=== PATIENT | female | born 1965 | race Caucasian/White ===

== ENCOUNTER 2020-05-01 09:48 | Emergency (ER) | payer OTHER ==
[2020-05-01] MEDS ORDERED: HYDROmorphone 1 MG/ML Syringe IM ONE (10:46)
--- NOTE | 2020-05-01 10:57 | EDM.PDOC ---
ED HPI GENERAL MEDICAL PROBLEM - General Chief Complaint: Genitourinary Problem Stated Complaint: kidney stone? Time Seen by Provider: 05/01/20 10:20 Source of Information: Reports: Patient History Limitations: Reports: No Limitations - History of Present Illness INITIAL COMMENTS - FREE TEXT/NARRATIVE: 54-year-old female with a history of kidney stones, presents with right flank pain for the past week, intermittent but worse over the past 24 to 48 hours. No dysuria or fever. She was evaluated at the clinic, had significant right flank pain but no CVA percussion tenderness or fever and vitals were stable but when they tried to order a CT scan to assess for renal stones they were told by radiology that they could not "fit a scan in". She was sent to the emergency room for the CT scan. Onset: Gradual Duration: Day(s): (Symptoms for 7 days, worse the last 24 to 48 hours) Right Lower Flank Pain Score (Numeric/FACES): 9 - Related Data Allergies Allergy/AdvReac Type Severity Reaction Status Date / Time codeine Allergy Vomiting Verified 05/01/20 10:06 Home Meds: Home Meds NK [No Known Home Meds] 05/01/20 [History] Past Medical History Genitourinary History: Reports: Renal Calculus - Past Surgical History HEENT Surgical History: Reports: Tonsillectomy Female Surgical History: Reports: Kidney stone extraction, Ureteral Stent Musculoskeletal Surgical History: Reports: Other (See Below) Other Musculoskeletal Surgeries/Procedures:: bunion removed with pin placed. Social & Family History - Tobacco Use Tobacco Use Status *Q: Heavy Tobacco User Years of Tobacco use: 37 Packs/Tins Daily: 1 - Caffeine Use Caffeine Use: Reports: Soda - Recreational Drug Use Recreational Drug Use: No ED ROS GENERAL - Review of Systems Review Of Systems: See Below Constitutional: Reports: Malaise. Denies: Fever, Chills HEENT: Reports: No Symptoms Respiratory: Denies: Shortness of Breath Cardiovascular: Denies: Chest Pain GI/Abdominal: Reports: Nausea. Denies: Abdominal Pain, Vomiting : Reports: Flank Pain (Right side), Urgency Musculoskeletal: Reports: Back Pain Skin: Reports: No Symptoms Neurological: Reports: No Symptoms Psychiatric: Reports: No Symptoms ED EXAM, GENERAL - Physical Exam Exam: See Below Exam Limited By: No Limitations General Appearance: Alert, Anxious, Mild Distress (Fairly uncomfortable) Head: Atraumatic Respiratory/Chest: No Respiratory Distress, Lungs Clear Cardiovascular: Regular Rate, Rhythm. No: Tachycardia GI/Abdominal: Soft, Tender (A small amount of discomfort across the right abdomen but no focal guarding or rebound) Extremities: Normal Inspection Neurological: Alert, Oriented Psychiatric: Anxious Skin Exam: Warm, Dry Course - Vital Signs Last Recorded V/S: Last Vital Signs Temp 98.2 F 05/01/20 10:05 Pulse 89 05/01/20 10:05 Resp 16 05/01/20 10:05 BP 109/43 L 05/01/20 10:05 Pulse Ox 100 05/01/20 10:05 - Orders/Labs/Meds Orders: Active Orders 24 hr Category Date Time Status CULTURE URINE [RM] Stat Lab 05/01/20 10:55 Received Labs: Laboratory Tests 05/01/20 Range/Units 10:18 Urine Color Yellow (YELLOW) Urine Appearance Turbid A (CLEAR) Urine pH 5.5 (5.0-8.0) Ur Specific [place] 1.020 (1.008-1.030) Urine Protein 30 H (NEGATIVE) mg/dL Urine Glucose (UA) Negative (NEGATIVE) mg/dL Urine Ketones Negative (NEGATIVE) mg/dL Urine Occult Blood Small H (NEGATIVE) Urine Nitrite Positive H (NEGATIVE) Urine Bilirubin Negative (NEGATIVE) Urine Urobilinogen 0.2 (0.2-1.0) EU/dL Ur Leukocyte Esterase Moderate H (NEGATIVE) Urine RBC 20-30 H (0-5) Urine WBC Packed H (0-5) Ur Epithelial Cells Not seen Amorphous Sediment Not seen Urine Bacteria Many Urine Mucus Not seen Meds: Medications Discontinued Medications Generic Name Dose Route Start Last Admin Trade Name Freq PRN Reason Stop Dose Admin Hydromorphone HCl 1 mg 05/01/20 10:46 05/01/20 10:52 Dilaudid IM 05/01/20 10:47 1 mg ONETIME ONE Administration Nitrofurantoin Macrocrystals 100 mg 05/01/20 11:01 05/01/20 11:18 Macrobid PO 05/01/20 11:02 100 mg ONETIME ONE Administration - Re-Assessments/Exams Free Text/Narrative Re-Assessment/Exam: 05/01/20 11:16 UA was obtained which is markedly abnormal with packed WBCs, bacteria and nitrite positive. A culture was initiated. She was given 100 mg of Macrobid, and will be continued on Macrobid for [address] of the abdomen and pelvis showed no obstructing stones or evidence of acute pyelonephritis. Patient will return in the next 24 to 48 hours if not improving with antibiotics. She was also given 10 hydrocodone for extra pain control and will continue with ibuprofen. 05/01/20 11:28 CT scan showed numerous scattered calcifications of the kidneys, spleen and liver typical of a past granulomatous disease but no acute findings such as renal hydronephrosis or obstruction. I did discuss the clinics inability to get a CT scan with radiology to hopefully get more cooperation in the future, and radiology had no knowledge of the clinic calling to trying to get a CT scan so I am not sure where the communication was disrupted. Departure - Departure Time of Disposition: 11:29 Disposition: Home, Self-Care Clinical Impression: UTI, Urinary tract infectious disease - Discharge Information Instructions: Urinary Tract Infection, Adult Referrals: Dinorah Islas MD [Primary Care Provider] - Forms: ED Department Discharge Care Plan Goals: Take antibiotic twice daily until gone, we will call you if your urine culture indicates you need different medicine. Return anytime if worsening such as nausea or vomiting the medication, increased pain or fever. Sepsis Event Note (ED) - Evaluation Sepsis Screening Result: No Definite Risk - Focused Exam Vital Signs: Vital Signs Temp Pulse Resp BP Pulse Ox 05/01/20 10:05 98.2 F 89 16 109/43 L 100 - My Orders Last 24 Hours: My Active Orders 05/01/20 10:55 CULTURE URINE [RM] Stat - Assessment/Plan Last 24 Hours: My Active Orders 05/01/20 10:55 CULTURE URINE [RM] Stat
[2020-05-01] MEDS ORDERED: Nitrofurantoin Monohydrate/Macrocrystalline 100 MG Cap PO ONE (11:01)
--- NOTE | 2020-05-01 11:07 | CT ---
Abdomen Pelvis wo Cont CLINICAL HISTORY: Right flank pain COMPARISON: None. TECHNIQUE: Axial tomographic images are obtained from the dome of the diaphragm to the pubic symphysis without IV contrast enhancement. No oral contrast was used. The dosage reduction and iterative reconstruction techniques employed. FINDINGS: The lung bases are free of mass.. The liver contains multiple granulomata. The gallbladder is mildly distended. The spleen contains multiple granulomata. The pancreas shows no mass or inflammatory change. The adrenal glands appear normal bilaterally. The right kidney contains 4 punctate renal calculi in the midpole region. There is no hydronephrosis. There is paucity of fat in the renal pelvis when compared to the left side. There is no other evidence that would suggest edema. There is no significant perinephric stranding The left kidney contains multiple calcifications which are slightly larger than the right. Largest in the upper pole measures 4 x 7 mm. There is no hydronephrosis. Ureters have a normal course and contour. The bladder has a normal contour. The aorta shows moderate atheromatous plaque without aneurysm.. There is no suspicious retroperitoneal adenopathy. Small intestinal configuration is nonacute. There is moderate retained stool throughout the colon. The appendix measures upper limits of normal at 78 mm in diameter. No periappendiceal inflammatory changes are identified. No enterolith is seen. IMPRESSION: Multiple hepatic and splenic granulomata Multiple varying sized nonobstructive renal calculi bilaterally. There is loss of some of the fat planes in the renal pelvis of questionable significance. No significant perinephric stranding is identified some early changes of patellar findings are not excluded. Appendix appears mildly thickened but is well demarcated with no surrounding inflammatory change. This may be anatomic variant. Moderate retained stool
== END 2020-05-01 11:17 | disposition home or self-care (01) ==
LOC: JP.ED 09:48
DX: N39.0 Urinary tract infection, site not specified (principal); F17.210 Nicotine dependence, cigarettes, uncomplicated; Z88.5 Allergy status to narcotic agent
CPT/HCPCS: 74176; 81001; 87086; 87088; 87186; 96372; 99284; A9270; J1170; 99283

== ENCOUNTER 2020-06-09 07:32 | Day surgery (SDC) | payer OTHER ==
[2020-06-09] MEDS ORDERED: Dextrose 5%-Lactated Ringers 1,000 ML IV SCH (08:00)
[2020-06-09] MEDS ORDERED: Propofol 200 MG/20 ML SDV ONE (09:22)
[2020-06-09] MEDS ORDERED: fentaNYL 100 MCG/2 ML SDV ONE (09:22)
[2020-06-09] MEDS ORDERED: Midazolam 1 MG/ML 2 ML SDV ONE (09:22)
--- NOTE | 2020-06-15 20:35 | OR ---
DATE OF PROCEDURE: 06/09/2020 SURGEON: Carloz Stout MD PREOPERATIVE DIAGNOSIS: Postprandial mid and upper abdominal pain. 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 OPERATIVE PROCEDURE: Flexible colonoscopy. ANESTHESIA: IV sedation. INDICATIONS FOR PROCEDURE: A 54-year-old presenting with postprandial mid and upper abdominal pain. To evaluate these symptoms, the patient will undergo a colonoscopy. Potential risks of the procedure including bleeding, infection, perforation and such were reviewed, and the patient wishes to proceed. DETAILS OF PROCEDURE: The patient was taken to the operating room and placed in a left lateral decubitus position. IV sedation was administered after which the initial digital rectal exam was performed and was unremarkable. Colonoscope was then passed into the rectum with retroflexion revealing uncomplicated hemorrhoidal columns. Scope was then eventually passed into the cecum. To that level, no specific pathology was seen. The prep was good. There were no areas of diverticulosis, no areas of colitis, or no polyps or other signs of neoplasia. One feature seen on colonoscopy was that with the current system, there was a separate screen, which maps out the location of the colonoscope throughout the procedure, and it was noted that the patient's cecum was down in the depths of the pelvis and actually located somewhat left of the midline. 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 The patient's symptoms are fairly suggestive of a gallbladder problem. Plan will be to proceed with a CCK-stimulated HIDA scan next Tuesday. If that is abnormal, we would then proceed with a cholecystectomy. If that is not significantly normal, one would consider a CT scan with oral and IV contrast to look for any further evidence of the malrotation and for items such as well of [place]'s bands and other features of malrotation. We will see the patient after the CCK-stimulated HIDA scan has been completed on Tuesday. Carloz Stout MD /[id number]
== END 2020-06-09 11:27 | disposition home or self-care (01) ==
LOC: JP.SDS 07:32
PROVIDERS: ATTEND Surgery
DX: R10.10 Upper abdominal pain, unspecified (principal); K64.9 Unspecified hemorrhoids; Z88.5 Allergy status to narcotic agent
CPT/HCPCS: 45378; J2250; J2704; J3010; J7121

== ENCOUNTER 2021-06-29 16:40 | Emergency (ER) | payer BC, OTHER | END 2021-06-29 18:32 | disposition home or self-care (01) | LOC: JP.ED 16:40 | DX: N39.0 Urinary tract infection, site not specified (principal); F17.200 Nicotine dependence, unspecified, uncomplicated; Z88.5 Allergy status to narcotic agent | CPT/HCPCS: 81001; 87086; 87088; 87186; 99283 ==

== ENCOUNTER 2023-04-03 10:08 | Emergency (ER) | payer BC ==
[2023-04-03] MEDS ORDERED: Cyclobenzaprine 10 MG Tab PO ONE (11:24)
[2023-04-03] MEDS ORDERED: Ketorolac 30 MG/ML SDV IM ONE (11:24)
[2023-04-03 12:04] LABS: A/G RATIO 1.2 (1.2-2.2); ALANINE AMINOTRANSFERASE,ALT 17 U/L (12-78); ALKALINE PHOSPHATASE 60 U/L (46-116); ASPARTATE AMNIOTRANSFERASE,AST 22 U/L (15-37); BILIRUBIN TOTAL 0.3 mg/dL (0.2-1.0); BLOOD UREA NITROGEN,BUN 15 mg/dL (7-18); CALCIUM 8.7 mg/dL (8.5-10.1); CARBON DIOXIDE,CO2 25 mmol/L (21-32); CHLORIDE,CL 106 mmol/L (100-108); CREATINE KINASE,CK 87 U/L (26-192); CREATININE 0.9 mg/dL (0.6-1.0); EST CRCL DRUG DOSING (CG) 62.06 mL/min; ESTIMATED GFR 75 mL/min (>60); GLUCOSE RANDOM 93 mg/dL (74-106); MAGNESIUM 1.7 mg/dL (1.8-2.4); POTASSIUM,K 3.9 mmol/L (3.6-5.2); PROTEIN TOTAL,TP 7.3 g/dL (6.4-8.2); SODIUM,NA 141 mmol/L (140-148)
== END 2023-04-03 12:54 | disposition home or self-care (01) ==
LOC: JP.ED 10:08
DX: M62.838 Other muscle spasm (principal); Z88.5 Allergy status to narcotic agent
CPT/HCPCS: 36415; 80053; 82550; 83735; 96372; 99283; A9270; J1885